=== PATIENT | male | born 1970 | race Caucasian/White ===

== ENCOUNTER 2016-09-28 13:38 | Outpatient (CLI) | payer MEDICAID | END 2016-09-28 13:39 | disposition home or self-care (01) | DX: R32 Unspecified urinary incontinence (principal) ==

== ENCOUNTER 2016-10-18 | Outpatient (CLI) | payer MEDICAID | END 2016-10-18 10:30 | disposition home or self-care (01) | DX: R55 Syncope and collapse (principal) ==

== ENCOUNTER 2016-10-29 06:28 | Emergency (ER) | payer MEDICAID ==
[2016-10-29] MEDS ORDERED: IBUPROFEN 600 MG TABLET PO STA (07:24)
[2016-10-29] MEDS ORDERED: IBUPROFEN 600 MG TABLET PO ONE (07:27)
== END 2016-10-29 07:30 | disposition home or self-care (01) ==
DX: I80.8 Phlebitis and thrombophlebitis of other sites (principal); M79.631 Pain in right forearm; F17.200 Nicotine dependence, unspecified, uncomplicated
CPT/HCPCS: 99282; 99283; A9270

== ENCOUNTER 2016-12-09 04:40 | Emergency (ER) | payer MEDICAID ==
[2016-12-09] MEDS ORDERED: DEXAMETHASONE 10 MG/ML VIAL IVP STA ×2 (05:06→07:18)
[2016-12-09] MEDS ORDERED: DEXAMETHASONE 10 MG/ML VIAL ONE ×2 (05:07→07:24)
[2016-12-09] MEDS ORDERED: IOPAMIDOL-300 100 ML VIAL IVP ONE (05:47)
== END 2016-12-09 09:24 | disposition short-term general hospital (02) ==
DX: S12.8XXA Fracture of other parts of neck, initial encounter (principal); J38.4 Edema of larynx; W01.198A Fall on same level from slipping, tripping and stumbling with subsequent striking against other object, initial encounter; Y93.K1 Activity, walking an animal; Y99.8 Other external cause status; F17.200 Nicotine dependence, unspecified, uncomplicated
CPT/HCPCS: 70491; 96374; 96376; 99284; Q9967

== ENCOUNTER 2016-12-09 09:28 | Outpatient (CLI) | payer MEDICAID | END 2016-12-09 09:29 | disposition short-term general hospital (02) | DX: R49.0 Dysphonia (principal); R13.10 Dysphagia, unspecified; W01.198A Fall on same level from slipping, tripping and stumbling with subsequent striking against other object, initial encounter; Y93.K1 Activity, walking an animal | CPT/HCPCS: A0170; A0425; A0426 ==

== ENCOUNTER 2017-01-06 13:16 | Outpatient (CLI) | payer MEDICAID | END 2017-01-06 13:17 | disposition home or self-care (01) | DX: B19.20 Unspecified viral hepatitis C without hepatic coma (principal) ==

== ENCOUNTER 2017-07-22 13:38 | Outpatient (CLI) | payer MEDICAID ==
--- NOTE | 2017-07-22 17:01 | XRAY Report ---
PELVIS AND RIGHT HIP: 07/22/2017 No comparisons. INDICATION: Right hip joint pain. TECHNIQUE: Four views of the pelvis and right hip. FINDINGS: There is mild joint space narrowing of the right hip with hypertrophic change. There is h ypertrophy of the right femoral head-neck junction. No acute bone findings. Alignment appears anato shaylee. IMPRESSION: MILD OSTEOARTHRITIS OF THE RIGHT HIP. PROMINENCE OF THE RIGHT FEMORAL HEAD-NECK JUNCTIO N - CORRELATE CLINICALLY FOR POSSIBLE FEMORAL ACETABULAR IMPINGEMENT. JOB #: [id number] EXT JOB #:[id number]
== END 2017-07-22 13:39 | disposition home or self-care (01) ==
LOC: DI.N 13:38
PROVIDERS: ATTEND Nurse Practitioner Gerontology
DX: M16.11 Unilateral primary osteoarthritis, right hip (principal)

== ENCOUNTER 2018-03-02 12:32 | Emergency (ER) | payer MEDICAID ==
[2018-03-02] MEDS ORDERED: SODIUM CHLORIDE 0.9% 1,000 ML IV ONE (13:01)
--- NOTE | 2018-03-02 13:14 | ED Physician Documentation ---
PD HPI FOCAL NEURO - Stated complaint Stated Complaint: GLF - Chief complaint Chief Complaint: Neuro - History obtained from History obtained from: Patient, Family () - History of Present Illness Timing - onset: Chronic (47-year-old gentleman with history of head injuries with potentially a craniotomy and postsurgical seizures, hepatitis C. For the many months now he has had episodes where he feels lightheaded and loses his balance and frequently falls. He has been using a cane for a long time. Yesterday he was mowing the lawn and felt hot and dizzy and had a near syncopal episode. He has chronic vertigo, but that is not what he is describing it is his his chief complaint now.) Review of Systems Constitutional: reports: Fatigue. denies: Fever, Chills Throat: denies: Dental pain / toothache, Sore throat Cardiac: denies: Chest pain / pressure, Palpitations Respiratory: reports: Cough. denies: Dyspnea GI: denies: Abdominal Pain PD PAST MEDICAL HISTORY - Past Medical History Cardiovascular: None GI: Diverticulitis Musculoskeletal: Chronic back pain - Past Surgical History Past Surgical History: Yes General: Appendectomy - Present Medications Home Medications: Ambulatory Orders Medication Instructions Recorded Confirmed Albuterol Sulfate [Ventolin Hfa] 2 puffs IH Q6HR PRN #1 [email or web address] 02/10/16 Acetaminophen [Tylenol] 325 mg PO ONCE 02/15/18 02/15/18 - Allergies Allergies/Adverse Reactions: Allergies Allergy/AdvReac Type Severity Reaction Status Date / Time Penicillins Allergy Unknown Verified 12/09/16 04:46 phenytoin sodium * Allergy Unknown Verified 12/09/16 04:46 [From Dilantin] phenytoin sodium extended * Allergy Unknown Verified 12/09/16 04:46 [From Dilantin] rofecoxib [From Vioxx] Allergy Unknown Verified 12/09/16 04:46 - Social History Does the pt smoke?: Yes Smoking Status: Current every day smoker Does the pt drink ETOH?: No Does the pt have substance abuse?: Yes - Immunizations Immunizations are current?: Yes - POLST Patient has POLST: No PD ED PE NORMAL - Vitals Vital signs reviewed: Yes - General General: Alert and oriented X 3, No acute distress - HEENT HEENT: PERRL, EOMI (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 Normal finger to nose testing.) Eye Opening: Spontaneous Motor: Obeys Commands Verbal: Oriented GCS Score: 15 - Psych Psych: Normal mood, Normal affect Results - Vitals Vitals: Vital Signs - 24 hr 03/02/18 03/02/18 12:45 14:08 Temperature 36.5 C 36.9 C Heart Rate 78 75 Respiratory 18 16 Rate Blood Pressure 140/88 H 124/81 H O2 Saturation 99 97 Oxygen O2 Source Room air - EKG (time done) 1257 Rate: Rate (enter#) (84) Rhythm: NSR [place]: Normal Intervals: Normal IN QRS: Normal Ischemia: Non specific changes (Peaked T waves in the mid precordial leads and inferior.) Compare to prior EKG: Unchanged from prior EKG Computer interpretation: Agree with computer - Labs Labs: Laboratory Tests 03/02/18 03/02/18 03/02/18 13:15 13:15 13:15 WBC 8.6 RBC 5.27 Hgb 15.7 Hct 46.8 MCV 88.7 MCH 29.8 MCHC 33.6 RDW 14.2 Plt Count 178 MPV 7.2 L Neut # (Auto) 4.9 Lymph # (Auto) 2.9 [place] # (Auto) 0.6 Eos # (Auto) 0.1 Baso # (Auto) 0.1 Absolute Nucleated RBC 0.01 Nucleated RBC % 0.1 Sodium 133 L Potassium 4.1 Chloride 99 L Carbon Dioxide 23 Anion Gap 11.0 BUN 20 Creatinine 0.8 Estimated GFR (MDRD) 104 Glucose 95 Calcium 9.0 Total Bilirubin 1.1 H AST 39 ALT 28 Alkaline Phosphatase 77 Ammonia Troponin I < 0.04 Total Protein 7.9 Albumin 4.5 Globulin 3.4 Albumin/Globulin Ratio 1.3 Lipase 27 03/02/18 13:15 WBC RBC Hgb Hct MCV MCH MCHC RDW Plt Count MPV Neut # (Auto) Lymph # (Auto) [place] # (Auto) Eos # (Auto) Baso # (Auto) Absolute Nucleated RBC Nucleated RBC % Sodium Potassium Chloride Carbon Dioxide Anion Gap BUN Creatinine Estimated GFR (MDRD) Glucose Calcium Total Bilirubin AST ALT Alkaline Phosphatase Ammonia 29.2 Troponin I Total Protein Albumin Globulin Albumin/Globulin Ratio Lipase PD MEDICAL DECISION MAKING - ED course ED course: 47-year-old gentleman with history of brain injuries and hepatitis C presents with subacute to chronic dizziness. He does have some evidence of dehydration today with elevated BUN and hyponatremia which should benefit from the administration of IV fluids which he was given here and feeling somewhat better. That said it does not explain everything. He did have a referral to a neurologist potentially about 6 months ago, it sounds like there was a problem with the paperwork and the visit did not happen. He and his were advised to follow-up and try to go through this process again. - Sepsis Event Vital Signs: Vital Signs - 24 hr 03/02/18 03/02/18 12:45 14:08 Temperature 36.5 C 36.9 C Heart Rate 78 75 Respiratory 18 16 Rate Blood Pressure 140/88 H 124/81 H O2 Saturation 99 97 Oxygen O2 Source Room air Departure - Departure Disposition: 01 Home, Self Care Clinical Impression: Dizziness, Dehydration Condition: Good Record reviewed to determine appropriate education?: Yes Instructions: ED Dizziness [facility]O Comments: Talk with your doctor again about referral to a neurologist, I think this would be a useful visit for you. Return if worsening. Your blood pressure was elevated today on check into the emergency department. This does not mean that you have hypertension, it is a common phenomenon to come to the emergency department and have elevated blood pressure. I recommend that you see your primary care physician within the week to have it rechecked when you are feeling better. Discharge Date/Time: 03/02/18 14:12
[2018-03-02 13:27] LABS: BASOPHILS # (AUTO) 0.1 10^3/uL (0.0-0.1); BASOPHILS % (AUTO) 1.1 %; EOSINOPHILS # (AUTO) 0.1 10^3/uL (0.0-0.7); EOSINOPHILS % (AUTO) 0.9 %; HGB - HEMOGLOBIN 15.7 g/dL (14.0-18.0); LYMPHOCYTES # (AUTO) 2.9 10^3/uL (1.5-3.5); MEAN CORPUSCULAR HEMOGLOBIN 29.8 pg (27.0-31.0); MEAN CORPUSCULAR HGB CONC 33.6 g/dL (32.0-36.0); MEAN CORPUSCULAR VOLUME 88.7 fL (80.0-94.0); MEAN PLATELET VOLUME 7.2 fL (7.4-11.4); MONOCYTES # (AUTO) 0.6 10^3/uL (0.0-1.0); MONOCYTES % (AUTO) 6.7 %; NEUTROPHILS # (AUTO) 4.9 10^3/uL (1.5-6.6); NEUTROPHILS % (AUTO) 57.3 %; PLT - PLATELET COUNT 178 10^3/uL (130-450); RED BLOOD COUNT 5.27 10^6/uL (4.70-6.10); RED CELL DISTRIBUTION WIDTH 14.2 % (12.0-15.0); WHITE BLOOD COUNT 8.6 x10^3/uL (4.8-10.8)
[2018-03-02 13:46] LABS: ALBUMIN 4.5 g/dL (3.2-5.5); ALBUMIN/GLOBULIN RATIO 1.3 (1.0-2.2); BILIRUBIN,TOTAL 1.1 mg/dL (0.2-1.0); CREATININE 0.8 mg/dL (0.6-1.2); TOTAL PROTEIN 7.9 g/dL (6.7-8.2)
[2018-03-02 14:08] VITALS: BP 124/81
== END 2018-03-02 14:12 | disposition home or self-care (01) ==
LOC: ED 12:32
DX: R42 Dizziness and giddiness (principal); E86.0 Dehydration; R03.0 Elevated blood-pressure reading, without diagnosis of hypertension; F17.200 Nicotine dependence, unspecified, uncomplicated
CPT/HCPCS: 36415; 80053; 82140; 83690; 84484; 85025; 93005; 96360; 99284

== ENCOUNTER 2018-05-16 07:02 | Emergency (ER) | payer MEDICAID ==
[2018-05-16 07:16] VITALS: BP 113/82
--- NOTE | 2018-05-16 07:24 | ED Physician Documentation ---
PD HPI UPPER EXT INJURY - Stated complaint Stated Complaint: LT HAND INJURY - Chief complaint Chief Complaint: Ext Problem - History obtained from History obtained from: Patient - History of Present Illness Location: Left, Finger (base of thumb) Type of injury: Fall Timing - onset: How many weeks ago (2) Timing - details: Abrupt onset, Still present (he fell 2 weeks ago and landed onto left hand. Thumb bent back. Pain and swelling with some bruising at base of thumb. had pain, swelling, bruising in that area. Still has limited ROM of the thumb base despite time for healing.) Improved by: Rest Worsened by: Moving, Palpating Associated symptoms: Swelling. No: Weakness, Numbness Similar symptoms before: Has not had sx before Recently seen: Not recently seen Review of Systems Constitutional: denies: Fever, Chills GI: denies: Abdominal Pain, Abdominal Swelling, Nausea Skin: denies: Rash, Lesions Musculoskeletal: reports: Other (thumb base on right with tenderness but no gross deformity. There is good strength for opposition of the thumb and some pain though.) Neurologic: denies: Focal weakness, Near syncope PD PAST MEDICAL HISTORY - Past Medical History Past Medical History: Yes Cardiovascular: None GI: Diverticulitis Musculoskeletal: Chronic back pain - Past Surgical History Past Surgical History: Yes General: Appendectomy - Present Medications Home Medications: Ambulatory Orders Medication Instructions Recorded Confirmed Albuterol Sulfate [Ventolin Hfa] 2 puffs IH Q6HR PRN #1 [email or web address] 02/10/16 Acetaminophen [Tylenol] 325 mg PO ONCE 02/15/18 02/15/18 - Allergies Allergies/Adverse Reactions: Allergies Allergy/AdvReac Type Severity Reaction Status Date / Time Penicillins Allergy Unknown Verified 05/16/18 07:16 phenytoin sodium * Allergy Unknown Verified 05/16/18 07:16 [From Dilantin] phenytoin sodium extended * Allergy Unknown Verified 05/16/18 07:16 [From Dilantin] rofecoxib [From Vioxx] Allergy Unknown Verified 05/16/18 07:16 - Social History Does the pt smoke?: Yes Smoking Status: Current every day smoker Does the pt drink ETOH?: No Does the pt have substance abuse?: Yes Substance Use and Type: Marijuana - Immunizations Immunizations are current?: Yes - POLST Patient has POLST: No PD ED PE NORMAL - Vitals Vital signs reviewed: Yes - General General: Alert and oriented X 3, No acute distress, Well developed/nourished - HEENT HEENT: PERRL, EOMI, Ears normal, Moist mucous membranes, Pharynx benign - Neck Neck: Supple, no meningeal sign, No adenopathy Results - Vitals Vitals: Vital Signs - 24 hr 05/16/18 07:06 Temperature 36.6 C Heart Rate 85 Respiratory 16 Rate Blood Pressure 113/82 H O2 Saturation 98 Oxygen O2 Source Room air - Rads (name of study) thumb right Radiology: Other (was going to get xray but the patient says he is okay without one as long as not seems dislocated.) PD MEDICAL DECISION MAKING - ED course Complexity details: considered differential (may be UCL injury or small avulsion fracture. Has good ROM of the joint and joint stability with stress testing. He would prefer not getting xray. Will treat with thumb splint until better. ), d/w patient - Sepsis Event Vital Signs: Vital Signs - 24 hr 05/16/18 07:06 Temperature 36.6 C Heart Rate 85 Respiratory 16 Rate Blood Pressure 113/82 H O2 Saturation 98 Oxygen O2 Source Room air Departure - Departure Disposition: 01 Home, Self Care Clinical Impression: Sprain of ulnar collateral ligament of metacarpophalangeal (MCP) joint of thumb Qualifiers: Encounter type: initial encounter Laterality: left Qualified Code(s): S63.642A - Sprain of metacarpophalangeal joint of left thumb, initial encounter Condition: Stable Record reviewed to determine appropriate education?: Yes Instructions: ED Sprain Finger Follow-Up: [facility] [Provider Group] Comments: Use a thumb splint when doing activities to help protect the thumb motion and allow better healing. Use this for the next week or 2. You do not have to have it on all the time. This sounds likely to have been a injury of the thumb ligament at the base. There may be a small fracture at the base as well. You have good range of motion of the thumb and strength with motion so it is reasonable if you do not want an x-ray at this point as I think it would not likely change treatment. Follow up PMD or Ortho if still not better in another 1 -2 weeks. Discharge Date/Time: 05/16/18 07:54
== END 2018-05-16 07:54 | disposition home or self-care (01) ==
LOC: ED 07:02
DX: S63.642A Sprain of metacarpophalangeal joint of left thumb, initial encounter (principal); W19.XXXA Unspecified fall, initial encounter; F17.200 Nicotine dependence, unspecified, uncomplicated
CPT/HCPCS: 99283

== ENCOUNTER 2018-10-16 11:58 | Emergency (ER) | payer MEDICAID ==
--- NOTE | 2018-10-16 12:57 | XRAY Report ---
Reason: cough Procedure Date: 10/16/2018 Accession Number: [id number] / [id number] Procedure: XR - Chest 2 View X-Ray CPT Code: 04632 FULL RESULT: EXAM: CHEST RADIOGRAPHY EXAM DATE: 10/16/2018 12:46 PM. CLINICAL HISTORY: Cough. COMPARISON: Chest 2 view PA/LAT 04/23/2016 10:00 AM. TECHNIQUE: 2 views. FINDINGS: Lungs/Pleura: No focal opacities evident. No pleural effusion. No pneumothorax. Normal volumes. Mediastinum: Heart and mediastinal contours are unremarkable. Other: None. IMPRESSION: Normal 2-view chest radiography. RADIA
--- NOTE | 2018-10-16 13:19 | ED Physician Documentation ---
PD HPI URI - Stated complaint Stated Complaint: COUGH/DIZZY - Chief complaint Chief Complaint: Resp - History obtained from History obtained from: Patient - History of Present Illness Timing - onset: How many weeks ago (3) Timing duration: Weeks (3) Timing details: Gradual onset, Still present (was improving some but then increased again the past few days, with productive cough and increased wheezing.) Associated symptoms: Productive cough, Dyspnea. No: Fever, NVD, Bilateral edema Contributing factors: COPD / asthma Similar symptoms before: Diagnosis (bronchitis and pneumonia) Recently seen: Not recently seen Review of Systems Constitutional: reports: Myalgias. denies: Fever Nose: reports: Congestion. denies: Rhinorrhea / runny nose Throat: denies: Sore throat Cardiac: denies: Chest pain / pressure, Palpitations Respiratory: reports: Dyspnea, Cough, Wheezing GI: denies: Nausea, Vomiting, Diarrhea Skin: denies: Rash, Lesions Musculoskeletal: denies: Extremity swelling Neurologic: reports: Generalized weakness. denies: Focal weakness, Numbness PD PAST MEDICAL HISTORY - Past Medical History Cardiovascular: None GI: Diverticulitis Musculoskeletal: Chronic back pain - Past Surgical History Past Surgical History: Yes General: Appendectomy - Present Medications Home Medications: Ambulatory Orders Medication Instructions Recorded Confirmed Albuterol Sulfate [Ventolin Hfa] 2 puffs IH Q6HR PRN #1 [email or web address] 02/10/16 02/15/18 Acetaminophen [Tylenol] 650 mg PO Q4HR PRN 02/15/18 10/16/18 Albuterol Sulf [Ventolin Hfa 2 - 3 puffs INH Q4HR PRN #1 inhaler 10/16/18 Inhaler] Benzonatate [Tessalon Perle] 100 - 200 mg PO TID PRN #30 capsule 10/16/18 Dexamethasone [Decadron] 4 mg PO DAILY #5 tablet 10/16/18 Doxycycline Hyclate 100 mg PO BID #20 capsule 10/16/18 - Allergies Allergies/Adverse Reactions: Allergies Allergy/AdvReac Type Severity Reaction Status Date / Time Penicillins Allergy Unknown Verified 10/16/18 13:39 phenytoin sodium * Allergy Unknown Verified 10/16/18 13:39 [From Dilantin] phenytoin sodium extended * Allergy Unknown Verified 10/16/18 13:39 [From Dilantin] rofecoxib [From Vioxx] Allergy Unknown Verified 10/16/18 13:39 - Social History Does the pt smoke?: Yes Smoking Status: Current every day smoker Does the pt drink ETOH?: No Does the pt have substance abuse?: Yes - Immunizations Immunizations are current?: Yes - POLST Patient has POLST: No PD ED PE NORMAL - Vitals Vital signs reviewed: Yes - General General: Alert and oriented X 3, No acute distress, Well developed/nourished - HEENT HEENT: Ears normal, Moist mucous membranes, Pharynx benign - Neck Neck: Supple, no meningeal sign, No adenopathy - Cardiac Cardiac: RRR, No murmur - Respiratory Respiratory: No: Clear bilaterally (some diffuse wheezing. No fine crackles. ) - Abdomen Abdomen: Soft, Non tender - Derm Derm: Normal color, Warm and dry - Extremities Extremities: No edema, No calf tenderness / cord - Neuro Neuro: Alert and oriented X 3, No motor deficit, Normal speech Results - Vitals Vitals: Oxygen O2 Source Room air - Rads (name of study) chest xray Radiology: Prelim report reviewed (no infiltrates), EMP read contemporaneously, See rad report PD MEDICAL DECISION MAKING - ED course Complexity details: reviewed results, considered differential (prolonged cough with worsening; consider bacterial transformation. ), d/w patient Departure - Departure Disposition: 01 Home, Self Care Clinical Impression: Acute bronchitis Qualifiers: Bronchitis organism: unspecified organism Qualified Code(s): J20.9 - Acute bronchitis, unspecified Condition: Stable Record reviewed to determine appropriate education?: Yes Instructions: ED Bronchitis Asthmatic Follow-Up: Rafaela Treviño ARNP [Primary Care Provider] - Prescriptions: Albuterol Sulf [Ventolin Hfa Inhaler] 2 - 3 puffs INH Q4HR PRN #1 inhaler PRN Reason: Shortness Of Air/Wheezing Benzonatate [Tessalon Perle] 100 - 200 mg PO TID PRN #30 capsule PRN Reason: Cough Dexamethasone [Decadron] 4 mg PO DAILY #5 tablet Doxycycline Hyclate 100 mg PO BID #20 capsule Comments: Drink lots of fluids. Use the albuterol inhaler 2-3 puffs 4 times a day for the next week and extra times as needed. Decadron steroid for inflammation of the airways and bronchials will decrease cough and improve breathing. Tessalon if needed for cough. Doxycycline antibiotic as directed. Most of these types of illnesses are viral but since years has been more prolonged and with the history of some COPD, it increases the probability of having some bacterial portion and so we can add the antibiotic as well. See if the combination of all this helps over the next several days to week. Discharge Date/Time: 10/16/18 14:46
[2018-10-16 14:47] VITALS: BP 114/88
== END 2018-10-16 14:46 | disposition home or self-care (01) ==
LOC: ED 11:58
DX: J20.9 Acute bronchitis, unspecified (principal)
CPT/HCPCS: 71046; 99283

== ENCOUNTER 2019-03-12 13:15 | Emergency (ER) | payer MEDICAID ==
[2019-03-12 14:16] LABS: BASOPHILS # (AUTO) 0.1 10^3/uL (0.0-0.1); BASOPHILS % (AUTO) 1.1 %; EOSINOPHILS % (AUTO) 0.5 %; HGB - HEMOGLOBIN 14.7 g/dL (14.0-18.0); LYMPHOCYTES # (AUTO) 1.8 10^3/uL (1.5-3.5); LYMPHOCYTES % (AUTO) 23.2 %; MEAN CORPUSCULAR HEMOGLOBIN 30.4 pg (27.0-31.0); MEAN CORPUSCULAR HGB CONC 34.1 g/dL (32.0-36.0); MEAN CORPUSCULAR VOLUME 89.2 fL (80.0-94.0); MEAN PLATELET VOLUME 7.8 fL (7.4-11.4); MONOCYTES # (AUTO) 0.5 10^3/uL (0.0-1.0); MONOCYTES % (AUTO) 6.4 %; NEUTROPHILS # (AUTO) 5.2 10^3/uL (1.5-6.6); NEUTROPHILS % (AUTO) 68.8 %; PLT - PLATELET COUNT 160 10^3/uL (130-450); RED BLOOD COUNT 4.82 10^6/uL (4.70-6.10); RED CELL DISTRIBUTION WIDTH 13.7 % (12.0-15.0); WHITE BLOOD COUNT 7.6 x10^3/uL (4.8-10.8)
[2019-03-12 14:17] LABS: ALBUMIN 4.5 g/dL (3.2-5.5); ALBUMIN/GLOBULIN RATIO 1.4 (1.0-2.2); BILIRUBIN,TOTAL 1.2 mg/dL (0.2-1.0); CALCIUM 9.4 mg/dL (8.5-10.3); CREATININE 0.8 mg/dL (0.6-1.2); TOTAL PROTEIN 7.7 g/dL (6.7-8.2)
--- NOTE | 2019-03-12 15:17 | ED Physician Documentation ---
History of Present Illness - Stated complaint Stated Complaint: ABD PX - Chief complaint Chief Complaint: Abd Pain - History obtained from History obtained from: Patient - Additonal information Additional information: Patient is a 48-year-old male with history of diverticulitis presenting with about 10 days of left lower quadrant pain associated with nausea, vomiting, diarrhea, but no urinary changes. Patient denies fever, but admits to chills. Patient also complains of nasal congestion and postnasal drip that is likely unrelated to his abdominal complaints. No other improving or worsening factors noted. Patient is a tobacco user. Review of Systems Constitutional: reports: Chills. denies: Fever GI: reports: Abdominal Pain, Nausea, Vomiting, Diarrhea PD PAST MEDICAL HISTORY - Past Medical History Cardiovascular: None GI: Diverticulitis Musculoskeletal: Chronic back pain - Past Surgical History Past Surgical History: Yes General: Appendectomy - Present Medications Home Medications: Ambulatory Orders Medication Instructions Recorded Confirmed Albuterol Sulfate [Ventolin Hfa] 2 puffs IH Q6HR PRN #1 hfa.aer.ad 02/10/16 02/15/18 Acetaminophen [Tylenol] 650 mg PO Q4HR PRN 02/15/18 10/16/18 Albuterol Sulf [Ventolin Hfa 2 - 3 puffs INH Q4HR PRN #1 inhaler 10/16/18 Inhaler] Benzonatate [Tessalon Perle] 100 - 200 mg PO TID PRN #30 capsule 10/16/18 Doxycycline Hyclate 100 mg PO BID #20 capsule 10/16/18 dexAMETHasone [Decadron] 4 mg PO DAILY #5 tablet 10/16/18 Dicyclomine [Bentyl] 20 mg PO QID #14 capsule 03/12/19 - Allergies Allergies/Adverse Reactions: Allergies Allergy/AdvReac Type Severity Reaction Status Date / Time Penicillins Allergy Unknown Verified 03/12/19 13:40 phenytoin sodium * Allergy Unknown Verified 03/12/19 13:40 [From Dilantin] phenytoin sodium extended * Allergy Unknown Verified 03/12/19 13:40 [From Dilantin] rofecoxib [From Vioxx] Allergy Unknown Verified 03/12/19 13:40 - Social History Does the pt smoke?: Yes Smoking Status: Current every day smoker Does the pt drink ETOH?: No Does the pt have substance abuse?: Yes - Immunizations Immunizations are current?: Yes - POLST Patient has POLST: No PD ED PE NORMAL - Vitals Vital signs reviewed: Yes - General General: Alert and oriented X 3, No acute distress, Well developed/nourished - HEENT HEENT: Atraumatic, Moist mucous membranes - Cardiac Cardiac: RRR, No murmur - Respiratory Respiratory: No respiratory distress. No: Clear bilaterally (Coarse breath sounds throughout, likely due to chronic tobacco use. No wheezing or crackles noted.) - Abdomen Abdomen: Normal bowel sounds, Soft, Non distended. No: Non tender (Left lower quadrant pain with palpation) - Derm Derm: Normal color, Warm and dry, No rash - Extremities Extremities: No deformity, No tenderness to palpate - Neuro Neuro: Alert and oriented X 3, No motor deficit, No sensory deficit - Psych Psych: Normal mood, Normal affect Results - Vitals Vitals: Vital Signs - 24 hr 03/12/19 03/12/19 13:25 15:26 Temperature 36.8 C 36.5 C Heart Rate 80 75 Respiratory 18 18 Rate Blood Pressure 129/81 H 151/85 H O2 Saturation 100 100 Oxygen O2 Source Room air - Labs Labs: Laboratory Tests 03/12/19 03/12/19 03/12/19 13:53 13:53 15:30 WBC 7.6 RBC 4.82 Hgb 14.7 Hct 43.0 MCV 89.2 MCH 30.4 MCHC 34.1 RDW 13.7 Plt Count 160 MPV 7.8 Neut # (Auto) 5.2 Lymph # (Auto) 1.8 [place] # (Auto) 0.5 Eos # (Auto) 0.0 Baso # (Auto) 0.1 Absolute Nucleated RBC 0.00 Nucleated RBC % 0.0 Sodium 137 Potassium 4.0 Chloride 100 L Carbon Dioxide 23 Anion Gap 14.0 H BUN 18 Creatinine 0.8 Estimated GFR (MDRD) 103 Glucose 90 Lactic Acid 1.6 Calcium 9.4 Total Bilirubin 1.2 H AST 51 H ALT 38 Alkaline Phosphatase 74 Total Protein 7.7 Albumin 4.5 Globulin 3.2 Albumin/Globulin Ratio 1.4 Lipase 26 Urine Color Urine Clarity Urine pH Ur Specific [place] Urine Protein Urine Glucose (UA) Urine Ketones Urine Occult Blood Urine Nitrite Urine Bilirubin Urine Urobilinogen Ur Leukocyte Esterase Ur Microscopic Review Urine Culture Comments 03/12/19 16:05 WBC RBC Hgb Hct MCV MCH MCHC RDW Plt Count MPV Neut # (Auto) Lymph # (Auto) [place] # (Auto) Eos # (Auto) Baso # (Auto) Absolute Nucleated RBC Nucleated RBC % Sodium Potassium Chloride Carbon Dioxide Anion Gap BUN Creatinine Estimated GFR (MDRD) Glucose Lactic Acid Calcium Total Bilirubin AST ALT Alkaline Phosphatase Total Protein Albumin Globulin Albumin/Globulin Ratio Lipase Urine Color YELLOW Urine Clarity CLEAR Urine pH 5.5 Ur Specific [place] <=1.005 Urine Protein NEGATIVE Urine Glucose (UA) NEGATIVE Urine Ketones TRACE Urine Occult Blood NEGATIVE Urine Nitrite NEGATIVE Urine Bilirubin NEGATIVE Urine Urobilinogen 0.2 (NORMAL) Ur Leukocyte Esterase NEGATIVE Ur Microscopic Review NOT INDICATED Urine Culture Comments NOT INDICATED PD MEDICAL DECISION MAKING - ED course Complexity details: reviewed results, re-evaluated patient, considered differential, d/w patient ED course: Most concerning for diverticulitis given patient's history of such, similar symptoms, and location of discomfort. Have low suspicion for renal disease, UTI, appendicitis, gallbladder disease, pancreatitis, AAA, small bowel obstruction or other pelvic etiologies, but considered. Patient did not require medications while in the ED, but received IV fluids. Screening lab work and urinalysis returned relatively unremarkable, as did CT imaging. Discussed results with patient and recommended supportive cares, as well as strict return precautions and follow-up with his primary care physician. Patient voiced understanding and is comfortable with discharge plan. Departure - Departure Disposition: 01 Home, Self Care Clinical Impression: Abdominal pain Qualifiers: Abdominal location: left lower quadrant Qualified Code(s): R10.32 - Left lower quadrant pain Condition: Good Instructions: ED Abdominal Pain Unkn Cause Follow-Up: Rafaela Treviño ARNP [Primary Care Provider] - Within 3 Days Prescriptions: Dicyclomine [Bentyl] 20 mg PO QID #14 capsule Comments: May use Bentyl as instructed for abdominal pain and spasm. Recommend bland diet advancing as tolerated. Please follow-up with your primary care physician in next 2 to 3 days. Return to ED sooner if you experience worsening symptoms or have other concerns.
[2019-03-12] MEDS ORDERED: SODIUM CHLORIDE 0.9% 1,000 ML IV ONE (15:18)
[2019-03-12] MEDS ORDERED: IOVERSOL 320 100 ML VIAL IVP ONE ×2 (16:00→16:08)
[2019-03-12 16:21] LABS: BILIRUBIN,URINE NEGATIVE (NEGATIVE); CLARITY,URINE CLEAR (CLEAR); GLUCOSE, URINE (UA) NEGATIVE (NEGATIVE); KETONES,URINE (UA) TRACE mg/dL (NEGATIVE); LEUKOCYTE ESTERASE, URINE NEGATIVE (NEGATIVE); NITRITE,URINE NEGATIVE (NEGATIVE); OCCULT BLOOD,URINE NEGATIVE (NEGATIVE); PH,URINE 5.5 PH (5.0-7.5); PROTEIN,URINE NEGATIVE (NEGATIVE); UROBILINOGEN,URINE 0.2 (NORMAL) E.U./dL (NORMAL)
--- NOTE | 2019-03-12 16:45 | CT Report ---
Reason: LLQ, concern for diverticulitis Procedure Date: 03/12/2019 Accession Number: [id number] Procedure: CT - Abdomen/Pelvis W CPT Code: FULL RESULT: EXAM: CT ABDOMEN AND PELVIS EXAM DATE: 03/12/2019 04:15 PM. CLINICAL HISTORY: LLQ, concern for diverticulitis. COMPARISONS: ABDOMEN/PELVIS W/ 09/16/2016 4:07 PM. TECHNIQUE: Routine helical CT imaging was performed through the abdomen and pelvis. IV contrast: 100 cc Optiray 320 IV. Enteric contrast: No. Reconstructions: Coronal and sagittal. In accordance with CT protocol optimization, one or more of the following dose reduction techniques were utilized for this exam: automated exposure control, adjustment of mA and/or KV based on patient size, or use of iterative reconstructive technique. FINDINGS: Lung Bases: Unremarkable. Liver: Liver parenchyma is low in density. Liver vessels are patent. No focal liver mass. Gallbladder/Bile Ducts: Unremarkable. Spleen: Normal. Pancreas: Normal. Adrenal Glands: Normal. Kidneys: Normal. No masses or hydronephrosis. Peritoneal Cavity/Bowel: The bowel is normal in caliber. No free fluid or free air. No abscess. There are scattered diverticula within the left colon. No definite localizing acute diverticulitis. Small bowel appears unremarkable. Pelvic Organs: Normal. The bladder and visualized pelvic organs are within normal limits. Vasculature: No aneurysms or other significant abnormality. Bones: No significant abnormality. Other: None. IMPRESSION: 1. Colonic diverticulosis of the left colon. 2. No definitive inflammatory process or definite positive findings of acute diverticulitis. 3. Steatosis of the liver. RADIA
[2019-03-12 17:23] VITALS: BP 121/91
== END 2019-03-12 17:32 | disposition home or self-care (01) ==
LOC: ED 13:15
DX: R10.32 Left lower quadrant pain (principal); R11.2 Nausea with vomiting, unspecified; R19.7 Diarrhea, unspecified; K57.30 Diverticulosis of large intestine without perforation or abscess without bleeding; K76.0 Fatty (change of) liver, not elsewhere classified; Z87.19 Personal history of other diseases of the digestive system; R09.81 Nasal congestion; R09.82 Postnasal drip; F17.200 Nicotine dependence, unspecified, uncomplicated
CPT/HCPCS: 36415; 74177; 80053; 81003; 83605; 83690; 85025; 99283; Q9967; 81001; 87086

== ENCOUNTER 2019-07-07 09:17 | Emergency (ER) | payer MEDICAID ==
[2019-07-07] MEDS ORDERED: LIDOCAINE PATCH 5% TOP STA (10:38)
[2019-07-07] MEDS ORDERED: KETOROLAC 60 MG/2 ML VIAL IM STA (10:38)
--- NOTE | 2019-07-07 10:40 | ED Physician Documentation ---
PD HPI BACK PAIN - Stated complaint Stated Complaint: HIB/BACK PX - Chief complaint Chief Complaint: Back Pain - History obtained from History obtained from: Patient - History of Present Illness Timing - onset: Chronic Timing - duration: Years (many) Severity Comments: moderate Location: Lower, Left Quality: Pain Associated symptoms: No: Fever, Weakness, Numbness, Incontinent of urine, Unable to urinate, Hematuria, Incontinent of stool Improves with: Nothing. No: Rest, Ice, Position, Meds Worsened by: Palpation, Other (walking) Contributing factors: Out of meds, Other (hx of chronic back pain) Similar symptoms before: Diagnosis (hx of herniated disks) Recently seen: Not recently seen - Treatment prior to arrival Treatment prior to arrival: none PD PAST MEDICAL HISTORY - Past Medical History Cardiovascular: None Respiratory: None Neuro: None Endocrine/Autoimmune: None GI: Diverticulitis : None HEENT: None Psych: None Musculoskeletal: Chronic back pain Derm: None - Past Surgical History Past Surgical History: Yes General: Appendectomy - Present Medications Home Medications: Ambulatory Orders Medication Instructions Recorded Confirmed Albuterol Sulfate [Ventolin Hfa] 2 puffs IH Q6HR PRN #1 hfa.aer.ad 02/10/16 02/15/18 Acetaminophen [Tylenol] 650 mg PO Q4HR PRN 02/15/18 10/16/18 Albuterol Sulf [Ventolin Hfa 2 - 3 puffs INH Q4HR PRN #1 inhaler 10/16/18 Inhaler] Benzonatate [Tessalon Perle] 100 - 200 mg PO TID PRN #30 capsule 10/16/18 Doxycycline Hyclate 100 mg PO BID #20 capsule 10/16/18 dexAMETHasone [Decadron] 4 mg PO DAILY #5 tablet 10/16/18 Dicyclomine [Bentyl] 20 mg PO QID #14 capsule 03/12/19 Lidocaine Patch 5% [Lidoderm Patch] 1 patch TOP DAILY PRN #10 patch 07/07/19 - Allergies Allergies/Adverse Reactions: Allergies Allergy/AdvReac Type Severity Reaction Status Date / Time acetaminophen [From Vicodin] Allergy Itching Verified 07/07/19 09:27 amoxicillin Allergy Unknown Verified 07/07/19 09:27 hydrocodone [From Vicodin] Allergy Itching Verified 07/07/19 09:27 oxycodone [From Percocet] Allergy Itching Verified 07/07/19 09:27 Penicillins Allergy Unknown Verified 07/07/19 09:27 phenytoin sodium * Allergy Unknown Verified 07/07/19 09:27 [From Dilantin] phenytoin sodium extended * Allergy Unknown Verified 07/07/19 09:27 [From Dilantin] rofecoxib [From Vioxx] Allergy Unknown Verified 07/07/19 09:27 clarithromycin [From Biaxin] AdvReac diarrhea Verified 07/07/19 09:27 sertraline [From Zoloft] AdvReac rash, Verified 07/07/19 09:27 diarrhea, jittery - Social History Does the pt smoke?: Yes Smoking Status: Current every day smoker Does the pt drink ETOH?: No Does the pt have substance abuse?: Yes - Immunizations Immunizations are current?: Yes - POLST Patient has POLST: No PD ED PE NORMAL - Vitals Vital signs reviewed: Yes - General General: Alert and oriented X 3, No acute distress, Well developed/nourished - HEENT HEENT: Atraumatic, Moist mucous membranes - Neck Neck: Supple, no meningeal sign - Cardiac Cardiac: RRR - Respiratory Respiratory: No respiratory distress - Abdomen Abdomen: Soft, Non tender, Non distended - Male Male : Deferred - Rectal Rectal: Deferred - Derm Derm: Normal color, Warm and dry, No rash - Extremities Extremities: No deformity, Normal ROM s pain, No edema, No calf tenderness / cord - Neuro Neuro: Alert and oriented X 3, No motor deficit, No sensory deficit Eye Opening: Spontaneous Motor: Obeys Commands Verbal: Oriented GCS Score: 15 - Psych Psych: Normal mood, Normal affect PD ED PE EXPANDED - Back Back: Soft tissue tenderness (left lateral low back and SI joint ), Straight leg raise + L. No: Vertebral tenderness, Limited ROM - Neuro Neuro: Normal motor, Normal Sensation Results - Vitals Vitals: Oxygen O2 Source Room air PD MEDICAL DECISION MAKING - ED course Complexity details: considered differential, d/w patient ED course: ddx- chronic low back pain, disk herniation, radiculopathy, SI joint strain Doubt spinal epidural abscess, osteomyelitis or diskitis - pt is afebrile, denies IVDA use, pain is chronic 48 y/o M with hx and exam as documented. Chronic low back pain, neuro intact, stable, no new injury or trauma. Pt given lidoderm patches but needs to f/u with PCP for recheck of symptoms and management of his chronic pain. Departure - Departure Disposition: 01 Home, Self Care Clinical Impression: Chronic SI joint pain Back pain Qualifiers: Back pain location: low back pain Chronicity: chronic Back pain laterality: left Sciatica presence: with sciatica Sciatica laterality: sciatica of left side Qualified Code(s): M54.42 - Lumbago with sciatica, left side Condition: Stable Record reviewed to determine appropriate education?: Yes Instructions: ED Low Back Pain Injury Follow-Up: Rafaela Treviño ARNP [Primary Care Provider] - Within 1 week (to recheck your symptoms and help arrange physical therapy) Prescriptions: Lidocaine Patch 5% [Lidoderm Patch] 1 patch TOP DAILY PRN #10 patch PRN Reason: pain Comments: Continue to take ibuprofen 800mg three times a day for your hip and back pain and add on the lidoderm patches as prescribed. Follow up with your doctor this week to recheck your symptoms and arrange physical therapy. Try heating pads and epson salt baths for muscle relaxation as well as local massage. Return to the ED if you develop a fever, leg weakness or new concerning symptoms. Discharge Date/Time: 07/07/19 11:09
[2019-07-07 11:09] VITALS: BP 132/98
== END 2019-07-07 11:09 | disposition home or self-care (01) ==
LOC: ED 09:17
DX: M54.5 Low back pain (principal); G89.29 Other chronic pain; F17.200 Nicotine dependence, unspecified, uncomplicated; Z79.51 Long term (current) use of inhaled steroids
CPT/HCPCS: 96372; 99281; 99283; A9270

== ENCOUNTER 2019-09-21 13:07 | Emergency (ER) | payer MEDICAID ==
--- NOTE | 2019-09-21 14:44 | ED Physician Documentation ---
History of Present Illness - Stated complaint Stated Complaint: SOA/COUGH - Chief complaint Chief Complaint: Resp - History obtained from History obtained from: Patient - History of Present Illness Timing: How many weeks ago (2) Pain level max: 0 Pain level now: 0 - Additonal information Additional information: 49-year-old male presents to the emergency department with complaint of running out of his inhaler. Has been being treated for COPD. Cannot see his doctor for another 2 to 3 weeks. No fevers. Better with rest, worse with exertion. No chest pain. Mild dry cough. Unchanged. Review of Systems Constitutional: denies: Fever, Chills GI: denies: Vomiting, Diarrhea Skin: denies: Rash Musculoskeletal: denies: Neck pain, Back pain PD PAST MEDICAL HISTORY - Past Medical History Cardiovascular: None Respiratory: None Neuro: None Endocrine/Autoimmune: None GI: Diverticulitis : None HEENT: None Psych: None Musculoskeletal: Chronic back pain Derm: None - Past Surgical History Past Surgical History: Yes General: Appendectomy - Present Medications Home Medications: Ambulatory Orders Medication Instructions Recorded Confirmed Albuterol Sulfate [Ventolin Hfa] 2 puffs IH Q6HR PRN #1 hfa.aer.ad 02/10/16 02/15/18 Acetaminophen [Tylenol] 650 mg PO Q4HR PRN 02/15/18 10/16/18 Albuterol Sulf [Ventolin Hfa 2 - 3 puffs INH Q4HR PRN #1 inhaler 10/16/18 Inhaler] Benzonatate [Tessalon Perle] 100 - 200 mg PO TID PRN #30 capsule 10/16/18 Doxycycline Hyclate 100 mg PO BID #20 capsule 10/16/18 dexAMETHasone [Decadron] 4 mg PO DAILY #5 tablet 10/16/18 Dicyclomine [Bentyl] 20 mg PO QID #14 capsule 03/12/19 Lidocaine Patch 5% [Lidoderm Patch] 1 patch TOP DAILY PRN #10 patch 07/07/19 Albuterol Sulfate [Proair Hfa 1 - 2 puffs INH Q4H PRN #1 inhaler 09/21/19 Inhaler] - Allergies Allergies/Adverse Reactions: Allergies Allergy/AdvReac Type Severity Reaction Status Date / Time acetaminophen [From Vicodin] Allergy Itching Verified 07/07/19 09:27 amoxicillin Allergy Unknown Verified 07/07/19 09:27 hydrocodone [From Vicodin] Allergy Itching Verified 07/07/19 09:27 oxycodone [From Percocet] Allergy Itching Verified 07/07/19 09:27 Penicillins Allergy Unknown Verified 07/07/19 09:27 phenytoin sodium * Allergy Unknown Verified 07/07/19 09:27 [From Dilantin] phenytoin sodium extended * Allergy Unknown Verified 07/07/19 09:27 [From Dilantin] rofecoxib [From Vioxx] Allergy Unknown Verified 07/07/19 09:27 clarithromycin [From Biaxin] AdvReac diarrhea Verified 07/07/19 09:27 sertraline [From Zoloft] AdvReac rash, Verified 07/07/19 09:27 diarrhea, jittery - Social History Does the pt smoke?: Yes Smoking Status: Current every day smoker Does the pt drink ETOH?: No Does the pt have substance abuse?: Yes - Immunizations Immunizations are current?: Yes - POLST Patient has POLST: No PD ED PE NORMAL - Vitals Vital signs reviewed: Yes - General General: Alert and oriented X 3, No acute distress, Well developed/nourished - HEENT HEENT: Ears normal, Moist mucous membranes, Pharynx benign - Neck Neck: Supple, no meningeal sign - Cardiac Cardiac: RRR, Strong equal pulses - Respiratory Respiratory: No respiratory distress, Other (Mild wheezing bilaterally. No respiratory distress.) - Abdomen Abdomen: Soft, Non tender, Non distended - Derm Derm: Warm and dry - Extremities Extremities: No edema - Neuro Neuro: Alert and oriented X 3 - Psych Psych: Normal mood, Normal affect Results - Vitals Vitals: Vital Signs - 24 hr 09/21/19 13:24 Temperature 37.0 C Heart Rate 98 Respiratory 20 Rate Blood Pressure 142/86 H O2 Saturation 98 Oxygen O2 Source Room air PD MEDICAL DECISION MAKING - ED course Complexity details: considered differential, d/w patient ED course: 49-year-old male presents to the emergency department requesting a refill of his inhaler. This was done. Patient counseled regarding signs and symptoms for which I believe and urgent re-evaluation would be necessary. Patient with good understanding of and agreement to plan and is comfortable going home at this time This document was made in part using voice recognition software. While efforts are made to proofread this document, sound alike and grammatical errors may occur. Departure - Departure Disposition: 01 Home, Self Care Clinical Impression: Asthma exacerbation with COPD (chronic obstructive pulmonary disease) Condition: Good Instructions: ED COPD Flare Follow-Up: your,doctor in 1 week [Other] Prescriptions: Albuterol Sulfate [Proair Hfa Inhaler] 1 - 2 puffs INH Q4H PRN #1 inhaler PRN Reason: Shortness Of Air/Wheezing Comments: Return if you worsen. Follow-up with your doctor for further care.
[2019-09-21 14:56] VITALS: BP 115/84
== END 2019-09-21 14:56 | disposition home or self-care (01) ==
LOC: ED 13:07
DX: J44.1 Chronic obstructive pulmonary disease with (acute) exacerbation (principal); J45.901 Unspecified asthma with (acute) exacerbation; F17.200 Nicotine dependence, unspecified, uncomplicated; Z76.0 Encounter for issue of repeat prescription
CPT/HCPCS: 99282; 99284

== ENCOUNTER 2019-11-27 13:33 | Emergency (ER) | payer MEDICAID ==
[2019-11-27 13:43] VITALS: BP 131/89
[2019-11-27] MEDS ORDERED: ONDANSETRON ODT 4 MG TABLET TL STA (14:37)
[2019-11-27] MEDS ORDERED: predniSONE 20 MG TABLET PO STA (14:37)
[2019-11-27] MEDS ORDERED: diazePAM 5 MG TABLET PO STA (14:37)
--- NOTE | 2019-11-27 14:40 | ED Physician Documentation ---
History of Present Illness - Stated complaint Stated Complaint: MUSCLE SPASMS/DIZZINESS - Chief complaint Chief Complaint: Ext Problem - History obtained from History obtained from: Patient (49-year-old gentleman with multiple remote head injuries presents with left low back pain. He always has it and has a history of sciatica, over the last week though the pain has become shocklike and radiates up to the rib cage and down the leg. He does have some mild tingling numbness in the left leg. No saddle anesthesia or fevers. No incontinence. He saw his doctor who ordered x-rays of the hip and lumbar spine I think, but he has been unable to get them done because he is on house arrest.) Review of Systems Constitutional: denies: Fever, Chills GI: denies: Abdominal Pain, Nausea, Vomiting : denies: Dysuria, Frequency, Hesitancy Musculoskeletal: reports: Back pain. denies: Neck pain PD PAST MEDICAL HISTORY - Past Medical History Cardiovascular: None Respiratory: None Neuro: None Endocrine/Autoimmune: None GI: Diverticulitis : None HEENT: None Psych: None Musculoskeletal: Chronic back pain Derm: None - Past Surgical History Past Surgical History: Yes General: Appendectomy - Present Medications Home Medications: Ambulatory Orders Medication Instructions Recorded Confirmed Albuterol Sulfate [Ventolin Hfa] 2 puffs IH Q6HR PRN #1 hfa.aer.ad 02/10/16 02/15/18 Acetaminophen [Tylenol] 650 mg PO Q4HR PRN 02/15/18 10/16/18 Albuterol Sulf [Ventolin Hfa 2 - 3 puffs INH Q4HR PRN #1 inhaler 10/16/18 Inhaler] Benzonatate [Tessalon Perle] 100 - 200 mg PO TID PRN #30 capsule 10/16/18 Doxycycline Hyclate 100 mg PO BID #20 capsule 10/16/18 dexAMETHasone [Decadron] 4 mg PO DAILY #5 tablet 10/16/18 Dicyclomine [Bentyl] 20 mg PO QID #14 capsule 03/12/19 Lidocaine Patch 5% [Lidoderm Patch] 1 patch TOP DAILY PRN #10 patch 07/07/19 Albuterol Sulfate [Proair Hfa 1 - 2 puffs INH Q4H PRN #1 inhaler 09/21/19 Inhaler] Ondansetron Odt [Zofran] 4 mg TL Q6H PRN #10 tablet 11/27/19 diazePAM [Valium] 5 - 10 mg PO TID PRN #15 tablet 11/27/19 predniSONE [Deltasone] 20 mg PO [id number] #21 tab 11/27/19 - Allergies Allergies/Adverse Reactions: Allergies Allergy/AdvReac Type Severity Reaction Status Date / Time acetaminophen [From Vicodin] Allergy Itching Verified 07/07/19 09:27 amoxicillin Allergy Unknown Verified 07/07/19 09:27 hydrocodone [From Vicodin] Allergy Itching Verified 07/07/19 09:27 oxycodone [From Percocet] Allergy Itching Verified 07/07/19 09:27 Penicillins Allergy Unknown Verified 07/07/19 09:27 phenytoin sodium * Allergy Unknown Verified 07/07/19 09:27 [From Dilantin] phenytoin sodium extended * Allergy Unknown Verified 07/07/19 09:27 [From Dilantin] rofecoxib [From Vioxx] Allergy Unknown Verified 07/07/19 09:27 clarithromycin [From Biaxin] AdvReac diarrhea Verified 07/07/19 09:27 sertraline [From Zoloft] AdvReac rash, Verified 07/07/19 09:27 diarrhea, jittery - Social History Does the pt smoke?: Yes Smoking Status: Current every day smoker Does the pt drink ETOH?: No Does the pt have substance abuse?: Yes - Immunizations Immunizations are current?: Yes - POLST Patient has POLST: No PD ED PE NORMAL - Vitals Vital signs reviewed: Yes - General General: Alert and oriented X 3, No acute distress - Neck Neck: Supple, no meningeal sign, No bony TTP - Cardiac Cardiac: RRR, No murmur - Respiratory Respiratory: No respiratory distress, Clear bilaterally - Abdomen Abdomen: Non tender - Back Back: No CVA TTP, No spinal TTP, Other (Muscular tenderness of the left low back without midline tenderness. Comfortable with range of motion.) - Extremities Extremities: Other (Mildly diminished sensation in the Left lower extremity not following a dermatomal pattern; otherwise The patient has equal and normal Achilles and patellar reflexes bilaterally. Normal sensation in all areas of the legs. Patient denies saddle anesthesia. Normal strength in flexion- extension at the ankles, knees, and flexion of the hips.) - Neuro Neuro: Alert and oriented X 3, Normal speech Results - Vitals Vitals: Vital Signs - 24 hr 11/27/19 13:39 Temperature 36.8 C Heart Rate 100 Respiratory 18 Rate Blood Pressure 131/89 H O2 Saturation 97 Oxygen O2 Source Room air - Rads (name of study) X-rays of the lumbar spine and left hip Radiology: EMP read contemporaneously PD MEDICAL DECISION MAKING - ED course ED course: 49-year-old gentleman with left hip pain, but the history and physical is more consistent with sciatica. Departure - Departure Disposition: 01 Home, Self Care Clinical Impression: Sciatica Qualifiers: Laterality: left Qualified Code(s): M54.32 - Sciatica, left side Hip pain Qualifiers: Laterality: left Qualified Code(s): M25.552 - Pain in left hip Condition: Good Record reviewed to determine appropriate education?: Yes Instructions: ED Sciatica Prescriptions: diazePAM [Valium] 5 - 10 mg PO TID PRN #15 tablet PRN Reason: Spasms Ondansetron Odt [Zofran] 4 mg TL Q6H PRN #10 tablet PRN Reason: Nausea / Vomiting predniSONE [Deltasone] 20 mg PO [id number] #21 tab Comments: Call your doctor to arrange a follow-up appointment, make the next available appointment. In the interim, return anytime if worse or if new symptoms develop. Discharge Date/Time: 11/27/19 15:35
--- NOTE | 2019-11-27 15:20 | XRAY Report ---
Reason: hip/back pain Procedure Date: 11/27/2019 Accession Number: [id number] / [id number] Procedure: XR - Hip w/Pelvis 2-3V LT CPT Code: Final Report FULL RESULT: EXAM: LEFT HIP RADIOGRAPHY EXAM DATE: 11/27/2019 03:11 PM. CLINICAL HISTORY: Hip/back pain. COMPARISON: HIP W/PELVIS 2-3V RT 07/22/2017 1:51 PM ABDOMEN/PELVIS W/ 03/12/2019 4:08 PM. TECHNIQUE: 3 views including AP pelvis. FINDINGS: Bones: Normal. No fractures or bone lesion. Joints: Mild bilateral hip joint space narrowing. No dislocation. Soft Tissues: Unremarkable. IMPRESSION: Mild narrowing of both hip joints, otherwise unremarkable hip radiography. RADIA
--- NOTE | 2019-11-27 15:21 | XRAY Report ---
Reason: hip/back pain Procedure Date: 11/27/2019 Accession Number: [id number] / [id number] Procedure: XR - Lumbar Spine 2 View CPT Code: Final Report FULL RESULT: EXAM: LUMBOSACRAL SPINE RADIOGRAPHY EXAM DATE: 11/27/2019 03:11 PM. CLINICAL HISTORY: Hip/back pain. COMPARISONS: ABDOMEN/PELVIS W/ 03/12/2019 4:08 PM. TECHNIQUE: 3 views. FINDINGS: Alignment: Minimal endplate spurring. No traumatic or destructive bony abnormalities. Bones: Five dex-xvw-zgsultw lumbar vertebral bodies are present. No fractures or bone lesions. Disks: Normal. Disk heights are maintained. Sacroiliac Joints: Unremarkable. Soft Tissues: Normal. The visualized bowel gas pattern is normal. IMPRESSION: Minimal spondylosis. RADIA
== END 2019-11-27 15:35 | disposition home or self-care (01) ==
LOC: ED 13:33
DX: M54.32 Sciatica, left side (principal); M25.552 Pain in left hip; F17.200 Nicotine dependence, unspecified, uncomplicated
CPT/HCPCS: 72100; 73502; 99284; A9270; J7512; Q0162

== ENCOUNTER 2020-07-12 00:52 | Emergency (ER) | payer MEDICAID ==
--- NOTE | 2020-07-12 01:23 | ED Physician Documentation ---
PD HPI HEENT - Stated complaint Stated Complaint: TOOTH PX - Chief complaint Chief Complaint: Heent - History obtained from History obtained from: Patient - History of Present Illness Timing - onset: How many weeks ago (3) Timing - details: Gradual onset Pain level now: 7 Location: Mouth (left lower teeth (no one specific tooth, but he indicates pain of left 1st premolar to 2nd molar)) Associated symptoms: No: Fever Recently seen: Not recently seen - Additional information Additional information: c/o 3 weeks of dental pain, left mandibular premolars and molars . He has dental appointment at [facility] on 07/16 at 9 AM but is worried about infection at this time Review of Systems Constitutional: denies: Fever, Chills, Sweats Throat: reports: Dental pain / toothache PD PAST MEDICAL HISTORY - Past Medical History Cardiovascular: None Respiratory: None Neuro: None Endocrine/Autoimmune: None GI: Diverticulitis : None HEENT: None Psych: None Musculoskeletal: Chronic back pain Derm: None - Past Surgical History Past Surgical History: Yes General: Appendectomy - Present Medications Home Medications: Ambulatory Orders Medication Instructions Recorded Confirmed Albuterol Sulfate [Ventolin Hfa] 2 puffs IH Q6HR PRN #1 hfa.aer.ad 02/10/16 02/15/18 Acetaminophen [Tylenol] 650 mg PO Q4HR PRN 02/15/18 10/16/18 Albuterol Sulf [Ventolin Hfa 2 - 3 puffs INH Q4HR PRN #1 inhaler 10/16/18 Inhaler] Benzonatate [Tessalon Perle] 100 - 200 mg PO TID PRN #30 capsule 10/16/18 Doxycycline Hyclate 100 mg PO BID #20 capsule 10/16/18 dexAMETHasone [Decadron] 4 mg PO DAILY #5 tablet 10/16/18 Dicyclomine [Bentyl] 20 mg PO QID #14 capsule 03/12/19 Lidocaine Patch 5% [Lidoderm Patch] 1 patch TOP DAILY PRN #10 patch 07/07/19 Albuterol Sulfate [Proair Hfa 1 - 2 puffs INH Q4H PRN #1 inhaler 09/21/19 Inhaler] Ondansetron Odt [Zofran] 4 mg TL Q6H PRN #10 tablet 11/27/19 diazePAM [Valium] 5 - 10 mg PO TID PRN #15 tablet 11/27/19 predniSONE [Deltasone] 20 mg PO [id number] #21 tab 11/27/19 Chlorhexidine Gluconate [Peridex] 15 ml MM BID #1 mouthwash 07/12/20 Naproxen Sodium [Aleve] 220 mg PO BID PRN #20 tablet 07/12/20 cephALEXin [Cephalexin] 500 mg PO TID #20 tablet 07/12/20 - Allergies Allergies/Adverse Reactions: Allergies Allergy/AdvReac Type Severity Reaction Status Date / Time acetaminophen [From Vicodin] Allergy Itching Verified 07/12/20 01:07 amoxicillin Allergy Unknown Verified 07/12/20 01:07 hydrocodone [From Vicodin] Allergy Itching Verified 07/12/20 01:07 oxycodone [From Percocet] Allergy Itching Verified 07/12/20 01:07 Penicillins Allergy Unknown Verified 07/12/20 01:07 phenytoin sodium * Allergy Unknown Verified 07/12/20 01:07 [From Dilantin] phenytoin sodium extended * Allergy Unknown Verified 07/12/20 01:07 [From Dilantin] rofecoxib [From Vioxx] Allergy Unknown Verified 07/12/20 01:07 clarithromycin [From Biaxin] AdvReac diarrhea Verified 07/12/20 01:07 sertraline [From Zoloft] AdvReac rash, Verified 07/12/20 01:07 diarrhea, jittery - Social History Does the pt smoke?: Yes Smoking Status: Current every day smoker Does the pt drink ETOH?: No Does the pt have substance abuse?: Yes - Immunizations Immunizations are current?: Yes - POLST Patient has POLST: No PD ED PE NORMAL - Vitals Vital signs reviewed: Yes - General General: Alert and oriented X 3, No acute distress, Well developed/nourished - HEENT HEENT: Moist mucous membranes PD ED PE EXPANDED - HEENT HEENT: Dental TTP (left mandibular premolars and molars without gingival edema or fluctuance) Results - Vitals Vitals: Vital Signs - 24 hr 07/12/20 07/12/20 01:05 01:55 Temperature 36.7 C Heart Rate 95 88 Respiratory 18 16 Rate Blood Pressure 103/90 H 129/79 O2 Saturation 97 98 Oxygen O2 Source Room air PD MEDICAL DECISION MAKING - ED course Complexity details: considered differential, d/w patient Departure - Departure Disposition: Home, Self Care Clinical Impression: Pain, dental Condition: Good Instructions: ED Tooth Pain Prescriptions: Naproxen Sodium [Aleve] 220 mg PO BID PRN #20 tablet PRN Reason: Pain cephALEXin [Cephalexin] 500 mg PO TID #20 tablet Chlorhexidine Gluconate [Peridex] 15 ml MM BID #1 mouthwash Comments: Follow up with dentistry as scheduled 07/16 Discharge Date/Time: 07/12/20 01:55
[2020-07-12] MEDS ORDERED: NAPROXEN 250 MG TABLET PO STA (01:35)
[2020-07-12] MEDS ORDERED: cephALEXin 250 MG CAPSULE PO STA (01:36)
[2020-07-12 01:59] VITALS: BP 129/79
== END 2020-07-12 01:55 | disposition home or self-care (01) ==
LOC: ED 00:52
DX: K08.89 Other specified disorders of teeth and supporting structures (principal); F17.200 Nicotine dependence, unspecified, uncomplicated
CPT/HCPCS: 99283; A9270

== ENCOUNTER 2020-07-27 20:16 | Emergency (ER) | payer MEDICAID ==
[2020-07-27] MEDS ORDERED: GABAPENTIN 100 MG CAPSULE PO STA (20:35)
--- NOTE | 2020-07-27 20:37 | ED Physician Documentation ---
PD HPI DYSPNEA - Stated complaint Stated Complaint: CHILLS,CP,NAUSEA, - Chief complaint Chief Complaint: Cardiac - History obtained from History obtained from: Patient - Additional information Additional information: 49-year-old gentleman with history of chronic pain due to sciatica and hepatitis C presents with 2 to 3 days worth of productive cough, chills with some chest pain especially when he coughs. Cough is minimally productive and he is wheezy. Not short of breath though. He also complains of some sinus congestion. His chronic pain is increased noting he is allergic to narcotics. Has never been on gabapentin which we will trial. Review of Systems Ten Systems: 10 systems reviewed and negative Constitutional: reports: Chills, Fatigue. denies: Fever Nose: reports: Rhinorrhea / runny nose, Congestion, Sinus pressure / pain Throat: denies: Sore throat Cardiac: reports: Chest pain / pressure (w cough). denies: Palpitations Respiratory: reports: Cough. denies: Dyspnea PD PAST MEDICAL HISTORY - Past Medical History Cardiovascular: None Respiratory: None Neuro: None Endocrine/Autoimmune: None GI: Diverticulitis : None HEENT: None Psych: None Musculoskeletal: Chronic back pain Derm: None - Past Surgical History Past Surgical History: Yes General: Appendectomy - Present Medications Home Medications: Ambulatory Orders Medication Instructions Recorded Confirmed Albuterol Sulfate [Ventolin Hfa] 2 puffs IH Q6HR PRN #1 hfa.[email or web address] 02/10/16 02/15/18 Acetaminophen [Tylenol] 650 mg PO Q4HR PRN 02/15/18 10/16/18 Albuterol Sulf [Ventolin Hfa 2 - 3 puffs INH Q4HR PRN #1 inhaler 10/16/18 Inhaler] Benzonatate [Tessalon Perle] 100 - 200 mg PO TID PRN #30 capsule 10/16/18 Doxycycline Hyclate 100 mg PO BID #20 capsule 10/16/18 dexAMETHasone [Decadron] 4 mg PO DAILY #5 tablet 10/16/18 Dicyclomine [Bentyl] 20 mg PO QID #14 capsule 03/12/19 Lidocaine Patch 5% [Lidoderm Patch] 1 patch TOP DAILY PRN #10 patch 07/07/19 Albuterol Sulfate [Proair Hfa 1 - 2 puffs INH Q4H PRN #1 inhaler 09/21/19 Inhaler] Ondansetron Odt [Zofran] 4 mg TL Q6H PRN #10 tablet 11/27/19 diazePAM [Valium] 5 - 10 mg PO TID PRN #15 tablet 11/27/19 predniSONE [Deltasone] 20 mg PO [id number] #21 tab 11/27/19 Chlorhexidine Gluconate [Peridex] 15 ml MM BID #1 mouthwash 07/12/20 Naproxen Sodium [Aleve] 220 mg PO BID PRN #20 tablet 07/12/20 cephALEXin [Cephalexin] 500 mg PO TID #20 tablet 07/12/20 Doxycycline Hyclate 100 mg PO BID #14 tablet 07/27/20 Gabapentin [Neurontin] 300 mg PO TID #20 capsule 07/27/20 predniSONE [Deltasone] 20 mg PO [id number] #21 tab 07/27/20 - Allergies Allergies/Adverse Reactions: Allergies Allergy/AdvReac Type Severity Reaction Status Date / Time acetaminophen [From Vicodin] Allergy Itching Verified 07/12/20 01:07 amoxicillin Allergy Unknown Verified 07/12/20 01:07 hydrocodone [From Vicodin] Allergy Itching Verified 07/12/20 01:07 oxycodone [From Percocet] Allergy Itching Verified 07/12/20 01:07 Penicillins Allergy Unknown Verified 07/12/20 01:07 phenytoin sodium * Allergy Unknown Verified 07/12/20 01:07 [From Dilantin] phenytoin sodium extended * Allergy Unknown Verified 07/12/20 01:07 [From Dilantin] rofecoxib [From Vioxx] Allergy Unknown Verified 07/12/20 01:07 clarithromycin [From Biaxin] AdvReac diarrhea Verified 07/12/20 01:07 sertraline [From Zoloft] AdvReac rash, Verified 07/12/20 01:07 diarrhea, jittery - Social History Does the pt smoke?: Yes Smoking Status: Current every day smoker Does the pt drink ETOH?: No Does the pt have substance abuse?: Yes - Immunizations Immunizations are current?: Yes - POLST Patient has POLST: No PD ED PE NORMAL - Vitals Vital signs reviewed: Yes - General General: Alert and oriented X 3, No acute distress - HEENT HEENT: PERRL, EOMI - Neck Neck: Supple, no meningeal sign, No bony TTP - Cardiac Cardiac: RRR, No murmur - Respiratory Respiratory: No respiratory distress, Other (Moderate expiratory wheezes with excellent air motion) - Abdomen Abdomen: Non tender - Back Back: No CVA TTP, No spinal TTP - Derm Derm: Normal color, Warm and dry - Extremities Extremities: No edema, No calf tenderness / cord - Neuro Neuro: Alert and oriented X 3, Normal speech Results - Vitals Vitals: Vital Signs - 24 hr 07/27/20 07/27/20 20:24 21:38 Temperature 37 C Heart Rate 94 91 Respiratory 18 21 Rate Blood Pressure 145/97 H 122/89 H O2 Saturation 98 96 Oxygen O2 Source Room air - EKG (time done) 2023 Rate: Rate (enter#) (82) Rhythm: NSR Dixon: Normal Intervals: Normal HI QRS: Normal Ischemia: Non specific changes Computer interpretation: Agree with computer - Labs Labs: Laboratory Tests 07/27/20 07/27/20 07/27/20 21:30 21:30 21:30 WBC 9.3 RBC 4.84 Hgb 15.0 Hct 44.6 MCV 92.1 MCH 31.0 MCHC 33.6 RDW 13.3 Plt Count 238 MPV 8.7 Neut # (Auto) 5.0 Lymph # (Auto) 3.3 [place] # (Auto) 0.7 Eos # (Auto) 0.2 Baso # (Auto) 0.1 Absolute Nucleated RBC 0.00 Nucleated RBC % 0.0 Sodium 142 Potassium 3.7 Chloride 105 Carbon Dioxide 21 Anion Gap 16.0 H BUN 16 Creatinine 0.9 Estimated GFR (MDRD) 90 Glucose 111 H Calcium 9.2 Troponin I High Sens 7.4 - Rads (name of study) 1v chest Radiology: EMP read contemporaneously (normal) PD MEDICAL DECISION MAKING - ED course ED course: 49-year-old gentleman with history of COPD and chronic bronchitis presents with apparent exacerbation of same, he does have some chest pain that seems like it is related to the coughing but a cardiac work-up was undertaken without pertinent positive findings. Departure - Departure Disposition: 01 Home, Self Care Clinical Impression: Chest wall pain, Acute bronchitis Condition: Stable Instructions: ED Bronchitis Asthmatic Prescriptions: predniSONE [Deltasone] 20 mg PO [id number] #21 tab Doxycycline Hyclate 100 mg PO BID #14 tablet Gabapentin [Neurontin] 300 mg PO TID #20 capsule Comments: You have a Covid test pending. You need to self quarantine until the result is done and negative. Do not leave your house. Do not get near anybody. The results should be done in 48 to 72 hours. We will call with a positive result, the fastest way to get a negative result for confirmation though is to go to the hospital website at [email or web address], click on the my [email or web address] tab and sign up for the patient portal.
--- NOTE | 2020-07-27 21:15 | XRAY Report ---
PROCEDURE: Chest 1 View X-Ray INDICATIONS: Cough TECHNIQUE: One view of the chest was acquired. COMPARISON: 10/16/2018 FINDINGS: Surgical changes and devices: None. Lungs and pleura: No pleural effusions or pneumothorax. Lungs are clear. Mediastinum: Mediastinal contours appear normal. Heart size is normal. Bones and chest wall: No suspicious bony lesions. Overlying soft tissues appear unremarkable. IMPRESSION: No acute cardiopulmonary process demonstrated radiographically. Reviewed by: Cj Robins MD on 07/27/2020 9:14 PM [facility] [email or web address]] Approved by: Cj Robins MD on 07/27/2020 9:14 PM [facility] [[email or web address]] Station ID: [id number]
[2020-07-27 21:38] LABS: BASOPHILS # (AUTO) 0.1 10^3/uL (0.0-0.1); BASOPHILS % (AUTO) 1.1 %; EOSINOPHILS # (AUTO) 0.2 10^3/uL (0.0-0.7); EOSINOPHILS % (AUTO) 1.9 %; LYMPHOCYTES # (AUTO) 3.3 10^3/uL (1.5-3.5); LYMPHOCYTES % (AUTO) 35.5 %; MEAN CORPUSCULAR HGB CONC 33.6 g/dL (32.0-36.0); MEAN CORPUSCULAR VOLUME 92.1 fL (80.0-94.0); MEAN PLATELET VOLUME 8.7 fL (7.4-11.4); MONOCYTES # (AUTO) 0.7 10^3/uL (0.0-1.0); MONOCYTES % (AUTO) 7.4 %; NEUTROPHILS % (AUTO) 53.6 %; PLT - PLATELET COUNT 238 10^3/uL (130-450); RED BLOOD COUNT 4.84 10^6/uL (4.70-6.10); RED CELL DISTRIBUTION WIDTH 13.3 % (12.0-15.0); WHITE BLOOD COUNT 9.3 x10^3/uL (4.8-10.8)
[2020-07-27 21:40] VITALS: BP 122/89
[2020-07-27 21:50] LABS: CALCIUM 9.2 mg/dL (8.5-10.3); CREATININE 0.9 mg/dL (0.6-1.2)
[2020-07-27] MEDS ORDERED: predniSONE 20 MG TABLET PO STA (22:02)
[2020-07-27] MEDS ORDERED: DOXYCYCLINE 100 MG TABLET PO STA (22:02)
== END 2020-07-27 22:20 | disposition home or self-care (01) ==
LOC: ED 20:16
DX: J44.0 Chronic obstructive pulmonary disease with (acute) lower respiratory infection (principal); J44.1 Chronic obstructive pulmonary disease with (acute) exacerbation; J20.9 Acute bronchitis, unspecified; R07.89 Other chest pain; Z20.828 Contact with and (suspected) exposure to other viral communicable diseases; F17.200 Nicotine dependence, unspecified, uncomplicated; B19.20 Unspecified viral hepatitis C without hepatic coma; M54.30 Sciatica, unspecified side; Z88.5 Allergy status to narcotic agent
CPT/HCPCS: 36415; 71045; 80048; 84484; 85025; 87635; 93005; 99284; A9270; J7512

== ENCOUNTER 2021-01-28 07:00 | Outpatient (CLI) | payer MEDICAID ==
--- NOTE | 2021-01-28 14:12 | XRAY Report ---
PROCEDURE: Lumbar Spine 2 View INDICATIONS: LOW BACK PX TECHNIQUE: 3 views of the lumbar spine were acquired. COMPARISON: X-ray lumbar spine 11/27/2019 FINDINGS: Bones: 5 [id number] vertebrae are present. There is grade 1 retrolisthesis of L2 on L3, L3 on L4, L4-L5 and L5 on S1 most prominent at L5-S1 measuring 5 mm. Severe foraminal narrowing is present at L5-S1, moderate L4-5. Moderate to severe disc space narrowing is present L5-S1, mild to moderate t hroughout the remainder of the lumbar spine. Nonbridging anterior osteophytes are noted. No vertebral body compression fractures. No suspicious bony lesions. Soft tissues: Overlying bowel gas pattern is normal. No suspicious soft tissue calcifications. IMPRESSION: Degenerative changes most severe at L5-S1. As clinically indicated, MRI lumbar spine may be obtained for further evaluation of nerve root compression secondary to foraminal narrowing. Reviewed by: Kirstie Cha MD on 01/28/2021 2:11 PM PDT Approved by: Kirstie Cha MD on 01/28/2021 2:11 PM PDT Station ID: [id number]
== END 2021-01-28 23:59 | disposition home or self-care (01) ==
LOC: DI.N 07:00
PROVIDERS: ATTEND Physician Assistant Medical
DX: M47.817 Spondylosis without myelopathy or radiculopathy, lumbosacral region (principal); M47.816 Spondylosis without myelopathy or radiculopathy, lumbar region; M43.16 Spondylolisthesis, lumbar region; M43.17 Spondylolisthesis, lumbosacral region